=== PATIENT | female | born 1945 | race Caucasian/White ===

== ENCOUNTER → 2023-03-21 09:05 | Outpatient (REF) | payer MEDICARE, OTHER, SELFPAY | LOC: DHCBS HW 09:05 | PROVIDERS: ATTENDING PHYSICIAN Internal Medicine Cardiovascular Disease; FAMILY PHYSICIAN Family Medicine | DX: Z95.3 Presence of xenogenic heart valve (principal) | CPT/HCPCS: 93306 ==

== ENCOUNTER → 2023-04-15 09:32 | Outpatient (REF) | payer MEDICARE, OTHER, SELFPAY | LOC: RAD 09:32 | PROVIDERS: ATTENDING PHYSICIAN Family Medicine | DX: M25.561 Pain in right knee (principal) | CPT/HCPCS: 73564 ==

== ENCOUNTER → 2023-10-16 07:05 | Outpatient (REF) | payer MEDICARE, OTHER, SELFPAY | LOC: RCS 07:05 | PROVIDERS: ATTENDING PHYSICIAN Internal Medicine Cardiovascular Disease; FAMILY PHYSICIAN Family Medicine | DX: I10 Essential (primary) hypertension (principal); Z95.2 Presence of prosthetic heart valve; I25.10 Atherosclerotic heart disease of native coronary artery without angina pectoris; Z95.3 Presence of xenogenic heart valve | CPT/HCPCS: 93306 ==

== ENCOUNTER 2023-10-28 14:37 | Emergency (ER) | payer MEDICARE, OTHER, SELFPAY ==
[2023-10-28 14:39] VITALS: BP 176/74
--- NOTE | 2023-10-28 15:12 | ED.MUSCINJ ---
HPI-Injury
General
Chief Complaint: Fall
Source: patient
Exam Limitations: none
Time Seen by Provider: 10/28/23 15:00
History of Present Illness-Injury
Initial Injury comments:
78-year-old spalz-zyfg-hcdpuiuj female presents after a fall she sustained yesterday. She lost her balance and fell forward. She hit her head on the right side. She complains of right wrist pain and right shoulder pain. No anticoagulants. She
typically ambulates without a cane or a walker
Past History
Past History
ED Past Medical History: HTN, Hypercholesterolemia and NIDDM
ED Past Surgical History: and Other (Aortic reconstruction after dog bite)
Social History
Tobacco: Non-smoker
Alcohol: None
Drug: None
Personal:
Living: with family
Employment: Retired
Family History
Family History: Other (Noncontributory)
Phy Exam
Physical Exam
Physical Exam:
General: Well-appearing female no acute respiratory distress
HEENT: Normocephalic abrasion with contusion right forehead
Heart: Regular rate and rhythm no murmurs
Lungs: Clear no wheeze
Abdomen soft nontender nondistended no guarding or rebound
Musculoskeletal exam: The spine is nontender. She is tender swollen and ecchymotic over the distal radius and wrist on the right side. She is also tender diffusely about the right upper arm. No deformities there.
Neurologic: Alert and oriented good sensation all extremities.
Injury Course
Orders/Labs/Results
Orders:
Orders
10/28/23 15:07
CR Humerus - Right Min 2 View* Urgent
Comment:
Reason For Exam: fall
CR Wrist - Right Min 3 Views Urgent
Comment:
Reason For Exam: fall, pain
10/28/23 15:08
CT Head W/o Iv Contrast Urgent
Comment:
Reason For Exam: fall, head strike
10/28/23 17:23
Sling Right-Treatment ONCE
[place] Wrist Right-Tx ONCE
Acetaminophen [Tylenol] 650 mg PO NOW STA
MDM/Problems Addressed
Differential Diagnosis Includes:
Mechanical fall with right wrist and right shoulder pain. Question fracture versus dislocation versus contusion. She also bumped her head. Will order CT of head to evaluate for intracranial hemorrhage.
*Critical Care Note
Total Time (30-74mins, 75-104mins- exclusive of procedures): Not Applicable
Update Note
Update Note:
I personally visualized x-rays of the right wrist and right humerus and CAT scan of the head. CAT scan the head is without acute findings x-ray of the right wrist demonstrates cortical fracture of the dorsal distal radius. She was placed in
universal splint and a sling. There is no findings on the x-ray of the shoulder. Recommended ibuprofen or Tylenol.
ED Attending Note
-
Portions of this chart may have been created with voice recognition software.� Occasional wrong word or��sound alike� substitutions may have occurred due to the inherent limitations of voice recognition software.
Discharge Plan
Departure
Patient Disposition: Home (Routine Discharge)
Date of Disposition: 10/28/23
Time of Disposition: 17:24
Patient with high blood pressure during this ER visit?: No
Discharge Problem:
Fracture of wrist
Instructions: Muscle and bone pain - Discharge instructions
Prescriptions:
No Action
saxagliptin [Onglyza] 5 MG tablet
5 mg PO DAILY Qty: 30 0RF
alpha lipoic acid 300 MG capsule
300 mg PO DAILY
atorvastatin 40 MG tablet
40 mg PO QPM 30 Days Qty: 30 0RF
acetaminophen 325 MG tablet
650 mg PO Q4HPRN PRN (Reason: mild pain,headache,temp >101F ) 0RF
aspirin 81 MG tablet,chewable
81 mg PO DAILY
multivitamin with folic acid [Tab-A-Elias] 1 TABLET tablet
1 tab PO DAILY
gabapentin 100 MG capsule
200 mg PO TID
lidocaine [Aspercreme (lidocaine)] 1 PATCH adhesive patch,medicated
2 patch topical DAILY 0RF
glimepiride 4 MG tablet
2 mg PO BID 0RF
ceftriaxone 2,000 MG/20 ML recon soln
2,000 mg IV Q24H 0RF
losartan 100 MG tablet
100 mg PO DAILY Qty: 30 0RF
Referrals:
Goran Sosa, [Family Provider] -
Bo Longoria MD [Active] -
Activity Restrictions/Additional Instructions:
Take splint off only to shower and reapply soon as you are done. Use sling for comfort. Follow-up with orthopedics for further evaluation
Interventions
Interventions:
*Risk Screen - Suicide Last Done: 10/28/23 14:39
*Neglect/Abuse Screening Last Done: 10/28/23 14:39
ED-Musculoskeletal Assessment Last Done: 10/28/23 15:21
ED- Neurological Assessment Last Done: 10/28/23 15:21
ED-Skin Assessment Last Done: 10/28/23 15:21
Discharge Date and Time
Print Language: YI
[2023-10-28] MEDS: TYLENOL 650 MG PO (17:48)
[2023-10-28 17:51] VITALS: BP 170/70
== END 2023-10-28 18:05 | disposition home or self-care (01) ==
LOC: EMR 14:37
PROVIDERS: EMERGENCY PHYSICIAN Emergency Medicine; FAMILY PHYSICIAN Family Medicine
DX: S52.591A Other fractures of lower end of right radius, initial encounter for closed fracture (principal); W19.XXXA Unspecified fall, initial encounter; I10 Essential (primary) hypertension; E78.00 Pure hypercholesterolemia, unspecified; E11.9 Type 2 diabetes mellitus without complications
CPT/HCPCS: 99284; 29125; 70450; 73060; 73110

== ENCOUNTER 2024-04-08 06:48 | Inpatient (IN) | payer MEDICARE, OTHER, SELFPAY ==
[2024-03-23 11:34] LABS: Hematocrit 35.4 % (37.0-47.0); Mean Corp Hgb Conc. 33.9 g/dL (33.0-37.0); Mean Corpuscular Volume 82.7 fL (81.0-99.0); Mean Platelet Volume 10.4 fL (7.4-10.4); Platelet Count 282 10^3/uL (130-400); Red Blood Cell Count 4.28 10^6/uL (4.20-5.40); Red Cell Dist. Width 15.5 % (11.5-14.5); White Blood Cell Count 8.3 10^3/uL (4.8-10.8)
[2024-03-23 12:59] LABS: ALT (SGPT) 16 U/L (0-35); AST (SGOT) 22 U/L (14-36); Albumin 4.9 g/dl (3.5-5.0); Alkaline Phosphatase 69 U/L (38-126); Blood Urea Nitrogen 19 mg/dl (7-17); Calcium 10.2 mg/dl (8.4-10.2); Carbon Dioxide 21 mmol/L (22-30); Chloride 105 mmol/L (98-107); Glucose 105 mg/dl (70-99); Potassium 4.4 mmol/L (3.5-5.1); Sodium 141 mmol/L (135-145); Total Bilirubin 1.1 mg/dl (0.2-1.3); Total Protein 8.4 g/dl (6.3-8.2); eGFR > 60.00
[2024-03-23 13:08] VITALS: BMI 35.1
[2024-04-08] VITALS (20 sets, daily range): BP systolic 112–169; BP diastolic 56–100; PULSE 75; O2SAT 97
[2024-04-08] MEDS: TYLENOL 650 MG PO ×5 (07:46→23:59)
[2024-04-08] MEDS: CELEBREX 200 MG PO (07:46)
[2024-04-08] MEDS: NORMOSOL-R/PLASMALYTE-A 1000 IV ×2 (07:46→14:39)
[2024-04-08 07:47] LABS: Glucose - Point of Care 103 mg/dl (70-99)
[2024-04-08 10:07] LABS: Glucose - Point of Care 79 mg/dl (70-99)
[2024-04-08] MEDS: ROXICODONE 5 MG PO (10:59)
[2024-04-08 11:59] LABS: Glucose - Point of Care 113 mg/dl (70-99)
[2024-04-08] MEDS: NORVASC 5 MG PO (12:47)
[2024-04-08] MEDS: COZAAR 100 MG PO (12:47)
[2024-04-08] MEDS: DILAUDID 0.25 MG IV (13:13)
--- NOTE | 2024-04-08 13:26 | W.PN.ORTHO ---
Today's Communication / Plan
-
D/c when clinically stable.
Assessment
.
Distal Motor Intact: Yes
Dressing:
Scant areas of old incisional bleeding.
Assessment:
R knee OA s/p R TKA w/ Dr Friedman 04/08/24
DVT prophylaxis - ASA, b/l venous foot pumps
HTN - + parameters - monitor BP
Coronary artery disease, status post CABG x2 2019 - continue statin
- Continue ASA but increase to 325 mg daily dosing for DVT prophylaxis
PVCs, asymptomatic
Post-operative atrial fibrillation 2019, no current oral anticoagulation
- Monitor on tele
- No current OAC
Suspected heart failure, preserved ejection fraction, and pulmonary HTN - reduce hourly IVF rate to prevent fluid overload
- Monitor I&Os
Chronic kidney disease, stage 3 - minimize nephrotoxins
Cyg-nlvcwoq-mkibtaykx diabetes, A1c 7.0 - monitor BS
- Resume Glimepiride, Pioglitazone
- + SSI
- Diabetic, carb controlled diet
Peptic ulcer disease with upper GI bleed per records and h/o H. Pylori - no NSAIDs post-op
- Hold Protonix for now given ADR w/ home Cefuroxime
Mild cognitive impairment - minimize opioids as able
Iron deficiency anemia, pre-operative hemoglobin stable - non-invasive hgb in AM
Hypercholesterolemia
Severe , status post bioprosthetic AVR 2018
Bioprosthetic AV endocarditis with Streptococcus anginosus, on chronic suppression with Cefuroxime
Mild mitral regurgitation
Mild tricuspid regurgitation
Venous varicosities
Remote hepatitis C, treated
Cholelithiasis, asymptomatic
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
Documented TIA 2013
Multilevel degenerative disc disease
Thyroid nodules
Right wrist fracture secondary to fall 10/2023
Obesity, BMI 35.1
Plan
.
Surgery / Date: R TKA w/ Dr Friedman 04/08/24
DVT Prophylaxis: Aspirin
Activity:
Out of bed.
PT/OT
Discharge Plan: Home w/ Outpatient PT
Subjective
.
.:
Patient examined resting in PACU.
R knee pain 06/20 - IV Dilaudid provided.
Appears tired but denies any other new significant complaints.
Vital Signs and Labs
.
Vital Signs and Labs:
Lab Results
03/23/24 10:48
03/23/24 10:48
Temp Pulse Resp BP Pulse Ox
97 F 72 18 168/95 97
04/08/24 10:40 04/08/24 12:47 04/08/24 12:45 04/08/24 12:47 04/08/24 12:45
[2024-04-08 13:57] LABS: Glucose - Point of Care 163 mg/dl (70-99)
--- NOTE | 2024-04-08 14:33 | PTCARENOTE ---
Pt arrived to 2 south from PACU s/p R TKR. Pt AAOx3, R knee dressing with scant amount of drainage, NV intact. PT at bedside to work with patient. Pt oriented to call alberts, call alberts within reach.
[2024-04-08] MEDS: ZOFRAN 4 MG IV (14:38)
[2024-04-08] MEDS: NOVOLOG FLEXPEN-MODERATE RESISTANCE SC ×2 (14:39→17:07)
[2024-04-08] MEDS: LIPITOR PO (15:11)
[2024-04-08] MEDS: AMARYL PO (15:11)
[2024-04-08] MEDS: ACTOS PO (15:11)
[2024-04-08] MEDS: LIDOCAINE 4% PATCH 2 PATCH TOPICAL (15:12)
[2024-04-08] MEDS: ANCEF 5 IV ×2 (15:12→23:58)
[2024-04-08] MEDS: ASPIRIN 325 MG PO (17:05)
[2024-04-08 17:08] LABS: Glucose - Point of Care 228 mg/dl (70-99)
[2024-04-08] MEDS: BACTROBAN 2% OINTMENT 1 APPLIC NASAL (20:00)
[2024-04-08] MEDS: COLACE 100 MG PO (20:00)
[2024-04-08] MEDS: SENOKOT PO (20:03)
[2024-04-08 22:05] LABS: Glucose - Point of Care 269 mg/dl (70-99)
[2024-04-09 03:00] VITALS: BP 136/65
[2024-04-09] MEDS: TYLENOL 650 MG PO ×2 (03:10→08:48)
[2024-04-09 07:27] LABS: Glucose - Point of Care 182 mg/dl (70-99)
[2024-04-09 07:42] VITALS: BP 127/52
[2024-04-09] MEDS: AMARYL 4 MG PO (08:48)
[2024-04-09] MEDS: ACTOS 15 MG PO (08:48)
[2024-04-09] MEDS: COLACE 100 MG PO (08:48)
[2024-04-09] MEDS: ASPIRIN 325 MG PO (08:48)
[2024-04-09] MEDS: LIDOCAINE 4% PATCH 2 PATCH TOPICAL (08:49)
[2024-04-09] MEDS: COZAAR PO (08:49)
[2024-04-09] MEDS: LIPITOR 80 MG PO (08:49)
[2024-04-09] MEDS: NORVASC PO (08:50)
[2024-04-09] MEDS: SENOKOT 17.2 MG PO (08:50)
[2024-04-09] MEDS: BACTROBAN 2% OINTMENT 1 APPLIC NASAL (08:51)
[2024-04-09] MEDS: NOVOLOG FLEXPEN-MODERATE RESISTANCE 1 UNITS SC (08:52)
[2024-04-09] MEDS: CEFTIN 500 MG PO (08:56)
[2024-04-09] MEDS: NEURONTIN 200 MG PO (08:56)
[2024-04-09] MEDS: TORADOL 15 MG IV (08:59)
[2024-04-09] MEDS: TYLENOL PO (09:02)
[2024-04-09] MEDS: COMPAZINE 5 MG PO (09:14)
--- NOTE | 2024-04-09 09:37 | W.PN.ORTHO ---
Today's Communication / Plan
-
Monitor pain and nausea after medication changes.
Work w/ PT and OT as able today.
D/c possible for later today pending clinical stability.
Assessment
.
Distal Motor Intact: Yes
Dressing:
Small areas of old incisional bleeding.
Assessment:
R knee OA s/p R TKA w/ Dr Friedman 04/08/24
DVT prophylaxis - ASA, b/l venous foot pumps
Post-op nausea - add Compazine TID w/ IV Zofran prn
- Will change Oxycodone to [place] prn as nausea possibly pain med related
- Did advise eating; reports she's has 'no food over last 2 days'
- Consider Protonix and Scopolamine
- Monitor
HTN - + parameters - BPs overall stable
Coronary artery disease, status post CABG x2 2019 - continue statin
- Continue ASA but increase to 325 mg daily dosing for DVT prophylaxis
PVCs, asymptomatic
Post-operative atrial fibrillation 2019, no current oral anticoagulation
- Rhythm on tele stable (NSR w/ PVCs)
- No current OAC
Suspected heart failure, preserved ejection fraction, and pulmonary HTN - reduced hourly IVF rate to prevent fluid overload
- I&Os appear stable
- No s/sx of acute CHF
Chronic kidney disease, stage 3 - minimize nephrotoxins
Qsh-xerzffy-mlsymnrtf diabetes, A1c 7.0 - BS readings initially elevated 2* surgical stress, IV steroids in OR
- BS readings expected to improve further w/ resumption of home Glimepiride and Pioglitazone, SSI during admission prn, and continuation of a diabetic, carb controlled diet
Peptic ulcer disease with upper GI bleed per records and h/o H. Pylori - no NSAIDs post-op
- Hold Protonix for now given ADR w/ home Cefuroxime
Mild cognitive impairment - minimize opioids as able
Iron deficiency anemia, pre-operative hemoglobin stable - non-invasive hgb 9.7 POD 1
- Asymptomatic, hemodynamically stable
Hypercholesterolemia
Severe , status post bioprosthetic AVR 2018
Bioprosthetic AV endocarditis with Streptococcus anginosus, on chronic suppression with Cefuroxime
Mild mitral regurgitation
Mild tricuspid regurgitation
Venous varicosities
Remote hepatitis C, treated
Cholelithiasis, asymptomatic
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
Documented TIA 2013
Multilevel degenerative disc disease
Thyroid nodules
Right wrist fracture secondary to fall 10/2023
Obesity, BMI 35.1
Plan
.
Surgery / Date: R TKA w/ Dr Friedman 04/08/24
DVT Prophylaxis: Aspirin
Activity:
Out of bed.
PT/OT
Discharge Plan: Home w/ Outpatient PT
Subjective
.
.:
Patient examined resting in bed.
R knee pain 5/10 w/ rest; however, was due for AM pain meds.
Nausea overnight, improving 'slightly' from yesterday.
Eager for possible d/c later today.
Vital Signs and Labs
.
Vital Signs and Labs:
Lab Results
03/23/24 10:48
03/23/24 10:48
Temp Pulse Resp BP Pulse Ox
98.8 F 80 16 127/52 90
04/09/24 07:42 04/09/24 07:42 04/09/24 07:42 04/09/24 08:50 04/09/24 07:42
Non-invasive Hgb result: 9.7
Physical Exam
-
HEENT: No pallor, cyanosis, or jaundice. Throat clear.
NECK: Supple. No JVD.
RESPIRATORY: Lungs clear to auscultation.
CVS: S1, S2 normal. RRR.�
ABDOMEN: Soft, non-tender. No distension. Obese.
EXTREMITIES: Expected post-surgical R knee edema. Strength equal, no calf pain with palpation/dorsiflexion. Calves soft.
RADIATION ONCOLOGY THERAPIST: AOx3. No focal deficits. tilting head band sawyer grossly intact
[2024-04-09 10:30] VITALS: BP 143/78; PULSE 84; O2SAT 92
[2024-04-09 11:44] LABS: Glucose - Point of Care 248 mg/dl (70-99)
[2024-04-09 11:45] VITALS: BP 130/59; O2SAT 99
[2024-04-09] MEDS: NORCO 5/325 2 TABLET PO (11:52)
[2024-04-09 12:28] VITALS: BP 109/95
--- NOTE | 2024-04-09 12:48 | W.DS.TRANS ---
DC Summary - Senior Energy Consultant
-
Discharge Instructions:
Discharge Diagnosis/Procedures R knee OA s/p R TKA w/ Dr Friedman 04/08/24
Diet Diabetic, Carb Controlled
Activity As tolerated,With Walker
Driving Restrictions Not until seen by your Dr
Bathing Restrictions OK to Shower
Other Services PT,VN,OT
Wound Care Dressing to be removed 1 week post-surgery.
Specialty Instructions Weigh Daily
Instructions:
Stand-Alone Forms: Total Hip/Knee Replacement D/C
Changes to Home Medications: Yes
Discharge Medications:
DC Medications w/original date entered in [facility]
alpha lipoic acid 300 mg capsule 300 mg PO DAILY Supplement 10/12/18
Cinnamon 1 cap PO DAILY 03/20/24
Lutigold Extra 1 cap PO DAILY 03/20/24
atorvastatin 80 mg tablet 80 mg PO DAILY High Cholesterol 03/20/24
cefuroxime axetil 500 mg tablet 500 mg PO DAILY Infection 03/20/24
glimepiride 4 mg tablet 4 mg PO DAILY Diabetes 03/20/24
kzgbwcql-ltbi-htga 8 mg-folic 400 mcg-K 50 mcg-lutein 300 mcg tablet (Centrum Silver Women) 1 tab PO DAILY Supplement 03/20/24
pioglitazone 15 mg tablet 15 mg PO DAILY Diabetes 03/20/24
turmeric 1 cap PO DAILY 03/20/24
mupirocin 2 % topical ointment 1 applic intranasal BID #1 tube 03/23/24
amlodipine 5 mg tablet 5 mg PO DAILY #1 tab 04/08/24
aspirin 325 mg tablet 325 mg PO DAILY #30 tabs 04/08/24
docusate sodium 100 mg capsule 100 mg PO BID #30 caps 04/08/24
lidocaine 4 % topical patch 2 patch topical DAILY #30 ea 04/08/24
losartan 100 mg tablet 100 mg PO DAILY #30 tabs 04/08/24
sennosides 8.6 mg tablet (Yuly-desire) 17.2 mg (2 x 8.6 mg) PO BID #30 tabs 04/08/24
acetaminophen 325 mg tablet 650 mg (2 x 325 mg) PO Q4HPRN PRN mild pain #30 tabs 04/09/24
gabapentin 100 mg capsule 200 mg (2 x 100 mg) PO TID neuropathic pain #42 caps 04/09/24
hydrocodone 5 mg-acetaminophen 325 mg tablet 1 - 2 tab PO Q6H PRN moderate-severe pain #30 tabs 04/09/24
prochlorperazine maleate 5 mg tablet 5 mg PO TID PRN nausea and vomiting #30 tabs 04/09/24
Home Medication Changes
aspirin 325 mg tablet 325 mg PO DAILY #30 tabs 04/08/24
docusate sodium 100 mg capsule 100 mg PO BID #30 caps 04/08/24
lidocaine 4 % topical patch 2 patch topical DAILY #30 ea 04/08/24
sennosides 8.6 mg tablet (Yuly-desire) 17.2 mg (2 x 8.6 mg) PO BID #30 tabs 04/08/24
acetaminophen 325 mg tablet 650 mg (2 x 325 mg) PO Q4HPRN PRN mild pain #30 tabs 04/09/24
gabapentin 100 mg capsule 200 mg (2 x 100 mg) PO TID neuropathic pain #42 caps 04/09/24
hydrocodone 5 mg-acetaminophen 325 mg tablet 1 - 2 tab PO Q6H PRN moderate-severe pain #30 tabs 04/09/24
prochlorperazine maleate 5 mg tablet 5 mg PO TID PRN nausea and vomiting #30 tabs 04/09/24
Pending Results: No
[2024-04-09 13:00] VITALS: BP 130/59; PULSE 91; O2SAT 98
--- NOTE | 2024-04-09 13:30 | CM ---
Initial assessment and Case Management Consult completed at bedside
IMM benefit explained; form signed @ [id number]
Pharmacy verified: [facility] @ [id number] [facility]
Patient and live in a multilevel home; 1 step to enter; 14 steps to 2nd floor; powder room on 1st floor; plans to sleep on recliner in 1st floor Den
PLOF: ambulated with a cane; assisted with ADLs as needed; was driving before Fall months ago
No history of SNF or Home Health utilization
DME: [employer]; has a RW
PT recommends home health for PT; options reviewed; preference is [facility]; referral sent to [facility] liaison
Plan: Discharge to home today with home health; will transport home
--- NOTE | 2024-04-09 13:33 | VNURNOTE ---
Home Health Liaison met with patient and spouse at bedside to discuss [facility] nurse/therapy, visits, schedule and homebound status. Both are agreeable and understand that visits at home will be 2-3 x per week to assess and teach medical management.
both are aware that [facility] will contact them for start of care in 1-2 days after discharge from .
[facility] referral completed in [facility].
[2024-04-09] MEDS: NOVOLOG FLEXPEN-MODERATE RESISTANCE 3 UNITS SC (13:37)
== END 2024-04-09 15:02 | disposition home health service (06) | DRG 470 ==
LOC: 2 SOUTH 06:48
PROVIDERS: ADMITTING PHYSICIAN Orthopaedic Surgery; FAMILY PHYSICIAN Family Medicine; REFERRING PHYSICIAN Internal Medicine Cardiovascular Disease
PROC: 0SRC0J9 Replacement of Right Knee Joint with Synthetic Substitute, Cemented, Open Approach (ICD-10-PCS; 2024-04-08)
DX: M17.11 Unilateral primary osteoarthritis, right knee (principal); I13.0 Hypertensive heart and chronic kidney disease with heart failure and stage 1 through stage 4 chronic kidney disease, or unspecified chronic kidney disease; I50.30 Unspecified diastolic (congestive) heart failure; N18.30 Chronic kidney disease, stage 3 unspecified; K27.9 Peptic ulcer, site unspecified, unspecified as acute or chronic, without hemorrhage or perforation; I49.3 Ventricular premature depolarization; I27.20 Pulmonary hypertension, unspecified; I25.10 Atherosclerotic heart disease of native coronary artery without angina pectoris; G31.84 Mild cognitive impairment of uncertain or unknown etiology; E78.00 Pure hypercholesterolemia, unspecified; E66.9 Obesity, unspecified; E11.22 Type 2 diabetes mellitus with diabetic chronic kidney disease; D50.9 Iron deficiency anemia, unspecified; Z68.35 Body mass index [BMI] 35.0-35.9, adult; Z79.84 Long term (current) use of oral hypoglycemic drugs; Z86.73 Personal history of transient ischemic attack (TIA), and cerebral infarction without residual deficits; Z88.0 Allergy status to penicillin; Z95.1 Presence of aortocoronary bypass graft; Z95.3 Presence of xenogenic heart valve
CPT/HCPCS: 36415; 73560; 80053; 82962; 83036; 85027; 87070; 97110; 97116; 97163; 97166; 97530; 97535; C1713; C1776

== ENCOUNTER 2024-06-10 06:58 | Outpatient (RCR) | payer MEDICARE, OTHER, SELFPAY | END 2024-06-10 23:59 | disposition home or self-care (01) | LOC: RPT 06:58 | PROVIDERS: ATTENDING PHYSICIAN Orthopaedic Surgery; FAMILY PHYSICIAN Family Medicine | DX: Z47.1 Aftercare following joint replacement surgery (principal); Z73.6 Limitation of activities due to disability; R26.89 Other abnormalities of gait and mobility; Z96.651 Presence of right artificial knee joint | CPT/HCPCS: 97162 ==

== ENCOUNTER 2024-06-19 14:53 | Outpatient (RCR) | payer MEDICARE, OTHER, SELFPAY | END 2024-06-19 23:59 | disposition home or self-care (01) | LOC: RPT 14:53 | PROVIDERS: ATTENDING PHYSICIAN Orthopaedic Surgery; FAMILY PHYSICIAN Family Medicine | DX: Z47.1 Aftercare following joint replacement surgery (principal); Z96.651 Presence of right artificial knee joint; Z73.6 Limitation of activities due to disability | CPT/HCPCS: 97010; 97110; 97116; 97530 ==

== ENCOUNTER 2024-07-10 15:02 | Outpatient (RCR) | payer MEDICARE, OTHER, SELFPAY | END 2024-07-10 23:59 | disposition home or self-care (01) | LOC: RPT 15:02 | PROVIDERS: ATTENDING PHYSICIAN Orthopaedic Surgery; FAMILY PHYSICIAN Family Medicine | DX: Z47.1 Aftercare following joint replacement surgery (principal); Z96.651 Presence of right artificial knee joint; Z73.6 Limitation of activities due to disability; R26.89 Other abnormalities of gait and mobility; Z74.1 Need for assistance with personal care; M25.561 Pain in right knee | CPT/HCPCS: 97010; 97110; 97112 ==

== ENCOUNTER 2024-07-24 13:53 | Outpatient (RCR) | payer MEDICARE, OTHER, SELFPAY | END 2024-07-24 23:59 | disposition home or self-care (01) | LOC: RPT 13:53 | PROVIDERS: ATTENDING PHYSICIAN Orthopaedic Surgery; FAMILY PHYSICIAN Family Medicine | DX: Z47.1 Aftercare following joint replacement surgery (principal); Z73.6 Limitation of activities due to disability; R26.89 Other abnormalities of gait and mobility; M25.561 Pain in right knee; Z96.651 Presence of right artificial knee joint | CPT/HCPCS: 97010; 97110; 97530 ==

== ENCOUNTER 2024-08-29 09:36 | Emergency (ER) | payer MEDICARE, OTHER, SELFPAY ==
[2024-08-29 09:38] VITALS: BP 134/82
--- NOTE | 2024-08-29 11:29 | ED.GENMED ---
History of Present Illness
General
Chief Complaint: Urinary Symptoms
Source: patient
Exam Limitations: none
Time Seen by Provider: 08/29/24 11:08
Nursing documentation reviewed up to this point in time: agreed with
History of Present Illness
History of Present Illness:
Patient is a 78-year-old female who presents to the emergency department for evaluation of urinary frequency. She reports approximately 1 to 2 months of urgency and frequency with occasional dysuria. She apparently was treated with a 5-day course
of antibiotics for suspected UTI without improvement in symptoms. She also reports some lower back discomfort and she is unsure if this is related to heavy lifting which she has been doing at home.
She reports an episode of black stool a few days ago.
She denies any recent falls or trauma. She denies any chest pain, shortness of breath, or lightheadedness. No loss of bowel control. No numbness/tingling or weakness in lower extremities. No fevers.
Patient takes cefuroxime daily.
Past History
Past History
ED Past Medical History: HTN, Hypercholesterolemia and NIDDM
ED Past Surgical History: and Other (Aortic reconstruction after dog bite)
Social History
Tobacco: Non-smoker
Alcohol: None
Drug: None
Personal:
Living: with family
Employment: Retired
Family History
Family History: Other (Noncontributory)
Review of Systems
Review of Systems
Allergies reviewed?: Yes
All Other Systems: ROS reviewed and negative except as documented in HPI and ROS
Phy Exam
Physical Exam
Physical Exam:
Vitals: Hypertensive, otherwise vital signs stable. Afebrile
General: Patient is well appearing, no acute distress. Nontoxic appearing
Skin: Warm and dry, no rashes or lesions
Head: Normocephalic, atraumatic
Eyes: Sclera nonicteric. EOMs intact. No nystagmus.
Throat: Protecting airway
Neck: Normal ROM, no cervical spine tenderness, no meningismus
Cardiac: Regular rate and rhythm, no murmurs.
Pulm: Normal respiratory effort, no wheezes, rales, rhonchi heard on exam
Abdomen: Abdomen soft and nontender. No rebound tenderness or guarding.
Rectal: Minimal light brown stool in vault. Hemoccult negative. No evidence of bleeding or melena.
Back: Mild reproducible tenderness in lower back. No CVA tenderness. No rash
Extremities: No evidence of cyanosis or edema. Strength 5 out of 5 in bilateral upper and lower extremities with normal sensation
Neuro: AAOx3. Grossly intact.
Psychiatric: Normal affect.
Course
Orders/Labs/Results
Orders:
Orders
08/29/24 11:29
0.9% Sodium Chloride 500 ml [Nss] 500 ml IV BOLUS
08/29/24 11:30
CT Abd/pelvis W Iv Cont Urgent
Comment:
Reason For Exam: Urinary frequency, lower back pain
08/29/24 11:50
Complete Blood Count/With Diff Urgent
Comprehensive Metabolic Panel Urgent
Urinalysis Reflex To Culture Urgent
Date Specimen was Collected: 08/29/24
Time Specimen was Collected: 10:25
Urine Microscopic Reflex Cult Urgent
Urine Culture Urgent
ROBY Source: U
Specimen Description:
Date Specimen was Collected: 08/29/24
Time Specimen was Collected: 10:25
08/29/24 16:13
Nitrofurantoin Monohydrate [Macrobid] 100 mg PO NOW STA
Abnormal Lab Results
08/29/24
11:50
Hgb 11.8 L g/dL
(12.0-16.0)
Hct 35.8 L %
(37.0-47.0)
RDW 16.9 H %
(11.5-14.5)
Absolute Monos (auto) 0.7 H 10^3/uL
(0.1-0.6)
Lymphocytes % 16.5 L %
(20.5-51.1)
Chloride 109 H mmol/L
(98-107)
BUN 22 H mg/dl
(7-17)
Glucose 101 H mg/dl
(70-99)
Total Protein 8.3 H g/dl
(6.3-8.2)
Urine Ketones 1+ A
(Negative)
Ur Occult Blood Reflex 3+ A
(Negative)
Leukocyte Esterase Rfl 2+ A
(Negative)
Urine RBC 3-6 A /HPF
(0-2)
Urine WBC (Reflex) 60-70 A /HPF
(0-5)
Urine Bacteria (Reflex) Few A
(Negative)
Urine Albumin (Reflex) 2+ A
(Neg - Trace)
08/29/24 11:50
08/29/24 11:50
Vital Signs
Initial and Last Documented VS:
Initial Vital Signs
Temp Pulse Resp BP Pulse Ox
98.2 F 78 18 134/82 96
08/29/24 09:38 08/29/24 09:38 08/29/24 09:38 08/29/24 09:38 08/29/24 09:38
Last Documented Vital Signs
Temp Pulse Resp BP Pulse Ox
98.2 F 84 26 134/63 94
08/29/24 09:38 08/29/24 15:19 08/29/24 15:19 08/29/24 15:00 08/29/24 15:19
MDM/Problems Addressed
Differential Diagnosis Includes:
Not limited to: UTI, pyelonephritis, renal colic, diverticulitis, muscle strain, etc.
MDM/Problems Addressed:
78 year-old female presenting with one month of urinary frequency accompanied by intermittent dysuria and low back pain. She did take course of antibiotics without improvement. Worse over the past few days. No fevers or vomiting. Vitals as above. On
exam � patient well appearing in no apparent distress. She is non-toxic appearing. Abdomen soft and nontender. Rectal exam reveals soft brown, heme negative stool. Patient neurologically intact with equal strength in extremities. Differential broad
and includes cystitis, pyelonephritis, obstructing renal calculi, diverticulitis, etc. Will check labs, UA, CT scan abdomen/pelvis.
Update: labs reviewed. No clinically significant abnormalities. Urine appears infected. CT scan w/ findings consistent with acute cystitis without any other abnormal findings.
Patient remains well and comfortable appearing. No clinical evidence of pyelonephritis on exam. Will plan to treat patient with oral antibiotics for simple cystitis, and discharge home with return precautions. Patient on cefuroxime daily � will
avoid further cephalosporin therapy. I did check pharmacy records, which shows prior anabiotic was Bactrim.
Will start patient on Macrobid as her renal function is normal. Return precautions discussed. She will follow up with primary care.
Chronic conditions affecting care:
Hypertension, diabetes
Acute Exacerbation and/or Progression of Chronic Illness:
N/A
*Radiology
Radiology exam reviewed: radiology read reviewed
*Pulse Oximetry
SaO2: 96
Oxygen Mode of Delivery: Room air
Patient hypoxic: no
*EKG
Interpreted by ED Provider?: NA
*Data Entry Manager Interpretation
Rate: Data Entry Manager- N/A
*Critical Care Note
Total Time (30-74mins, 75-104mins- exclusive of procedures): Not Applicable
Data Reviewed
Prescriptions/Medications Considered But Not Given:
Recent antibiotic treatment with Bactrim per pharmacy records�will avoid for now.
ED Attending Note
-
Portions of this chart may have been created with voice recognition software.� Occasional wrong word or��sound alike� substitutions may have occurred due to the inherent limitations of voice recognition software.
Discharge Plan
Departure
Patient Disposition: Home (Routine Discharge)
Date of Disposition: 08/29/24
Time of Disposition: 16:14
Patient with high blood pressure during this ER visit?: Yes
Discharge Problem:
Cystitis
Instructions: Urinary Tract Infection, Adult (DC), BLOOD PRESSURE
Prescriptions:
New
nitrofurantoin monohyd/m-cryst [Macrobid] 100 mg capsule
100 mg PO BID 5 Days Qty: 10 0RF
No Action
alpha lipoic acid 300 MG capsule
300 mg PO DAILY
pioglitazone 15 mg Tablet
15 mg PO DAILY
atorvastatin 80 mg Tablet
80 mg PO DAILY
glimepiride 4 mg Tablet
4 mg PO DAILY
cefuroxime axetil 500 mg Tablet
500 mg PO DAILY
Centrum Silver Women 8 mg iron-400 mcg-50 mcg Tablet
1 tab PO DAILY
Lutigold Extra
1 cap PO DAILY
turmeric
1 cap PO DAILY
Cinnamon
1 cap PO DAILY
mupirocin 2 % ointment
1 applic intranasal BID Qty: 1 0RF
aspirin 325 mg Tablet
325 mg PO DAILY Qty: 30 0RF
Rx Instructions:
Take daily x4 weeks for blood clot prevention; then resume Aspirin 81 mg daily.
docusate sodium 100 mg Capsule
100 mg PO BID Qty: 30 0RF
lidocaine 4 % Adhesive Patch,Medicated
2 patch topical DAILY Qty: 30 0RF
Rx Instructions:
Over the counter. 12 hours on, 12 hours off.
Apply to sides of right knee/thigh.
sennosides [Yuly-desire] 8.6 mg Tablet
17.2 mg PO BID Qty: 30 0RF
amlodipine 5 mg Tablet
5 mg PO DAILY Qty: 1 0RF
Rx Instructions:
HOLD IF systolic blood pressure <130 while on post-surgical narcotics.
losartan 100 MG tablet
100 mg PO DAILY Qty: 30 0RF
Rx Instructions:
HOLD IF systolic blood pressure <130 while on post-surgical narcotics.
prochlorperazine maleate 5 mg Tablet
5 mg PO TID PRN (Reason: nausea and vomiting) Qty: 30 0RF
acetaminophen 325 mg Tablet
650 mg PO Q4HPRN PRN (Reason: mild pain) Qty: 30 0RF
Rx Instructions:
DO NOT exceed >4000 mg of Tylenol daily while on [place].
1 [place] tab = 325 mg of Tylenol.
hydrocodone-acetaminophen 5-325 mg tablet
1 - 2 tab PO Q6H PRN (Reason: moderate-severe pain) Qty: 30 0RF
Rx Instructions:
1 tab for moderate pain, 2 if severe.
Dx total joint
gabapentin 100 mg capsule
200 mg PO TID Qty: 42 0RF
Referrals:
Goran Sosa, [Family Provider, Family Practice] - Follow up in 2-3 days
Activity Restrictions/Additional Instructions:
RETURN TO THE EMERGENCY DEPARTMENT ANY FEVER, CHILLS ABDOMINAL PAIN/BACK PAIN, VOMITING, WORSENING CURRENT SYMPTOMS, OR ANY OTHER CONCERNS
- As discussed�your CT scan and urine showed evidence consistent with a urinary tract infection. A prescription for antibiotics has been sent to your pharmacy. Please take this twice a day for the next 5 days. You were given your first dose while
in the emergency department.
- It is important stay well-hydrated.
- Follow-up with your primary care provider early next week for further evaluation/management to ensure that your symptoms are improving.
Monitor your symptoms closely and return with any acute worsening/new symptoms or any other concerns
Interventions
Interventions:
*Risk Screen - Suicide Last Done: 08/29/24 09:38
*General Assessment Last Done: 08/29/24 09:38
*Neglect/Abuse Screening Last Done: 08/29/24 11:36
*ED- Fall Risk Assessment Last Done: 08/29/24 11:31
*ED COVID-19 Vaccine History Last Done: 08/29/24 11:31
*Nursing Disposition Last Done: 08/29/24 16:26
ED-Female Genitourinary Assessment Last Done: 08/29/24 11:36
Discharge Date and Time
Discharge Date/Time: 08/29/24 16:34
Print Language: MALAY
[2024-08-29 11:31] VITALS: BMI 34.4
[2024-08-29 11:35] VITALS: BP 166/65
[2024-08-29] MEDS: NSS 500 IV (12:04)
[2024-08-29 12:05] LABS: Hematocrit 35.8 % (37.0-47.0); Hemoglobin 11.8 g/dL (12.0-16.0); Mean Corp Hgb Conc. 33.0 g/dL (33.0-37.0); Mean Corpuscular Volume 84.0 fL (81.0-99.0); Nucleated Red Blood Cells % 0 %; Platelet Count 228 10^3/uL (130-400); Red Cell Dist. Width 16.9 % (11.5-14.5)
[2024-08-29 12:16] LABS: ALT (SGPT) 17 U/L (0-35); AST (SGOT) 21 U/L (14-36); Albumin 4.8 g/dl (3.5-5.0); Alkaline Phosphatase 62 U/L (38-126); Blood Urea Nitrogen 22 mg/dl (7-17); Calcium 9.6 mg/dl (8.4-10.2); Carbon Dioxide 24 mmol/L (22-30); Chloride 109 mmol/L (98-107); Estimated Creatinine Clearance 71 ml/min; Glucose 101 mg/dl (70-99); Potassium 4.0 mmol/L (3.5-5.1); Sodium 141 mmol/L (135-145); Total Protein 8.3 g/dl (6.3-8.2); eGFR > 60.00
[2024-08-29 12:25] LABS: Urine Character Clear (Clear)
[2024-08-29 12:37] LABS: Urine Squamous Cell 0-2 /LPF (Few); Urine White Cell 60-70 /HPF (0-5)
[2024-08-29 13:00] VITALS: BP 144/63
[2024-08-29 14:48] VITALS: BP 150/56
[2024-08-29 15:00] VITALS: BP 134/63
[2024-08-29] MEDS: MACROBID 100 MG PO (16:18)
== END 2024-08-29 16:34 | disposition home or self-care (01) ==
LOC: EMR 09:36
PROVIDERS: Physician Assistant; Student in an Organized Health Care Education/Training Program; EMERGENCY PHYSICIAN Emergency Medicine; FAMILY PHYSICIAN Family Medicine
DX: N30.00 Acute cystitis without hematuria (principal); M54.50 Low back pain, unspecified; R19.5 Other fecal abnormalities; I10 Essential (primary) hypertension; E78.00 Pure hypercholesterolemia, unspecified; E11.36 Type 2 diabetes mellitus with diabetic cataract; I35.0 Nonrheumatic aortic (valve) stenosis; R01.1 Cardiac murmur, unspecified; M19.90 Unspecified osteoarthritis, unspecified site; Z79.82 Long term (current) use of aspirin; Z79.84 Long term (current) use of oral hypoglycemic drugs; Z95.1 Presence of aortocoronary bypass graft; Z86.73 Personal history of transient ischemic attack (TIA), and cerebral infarction without residual deficits; Z88.0 Allergy status to penicillin; Z88.8 Allergy status to other drugs, medicaments and biological substances
CPT/HCPCS: 99284; 96360; 74177; 80053; 81003; 81015; 85025; 87077; 87086; Q9967